=== PATIENT | female | born 1945 ===

== ENCOUNTER 2019-12-25 08:51 | Inpatient (IN) | payer OTHER ==
[~2019-12-25] VITALS: Ht 170.2 cm; Wt 88.5 kg
[~2019-12-25 08:51] MED LIST: AMOX1TAB12 PO; CATAFLAM50 MG PO; JANUMET 50-501 UDTAB PO
--- NOTE | 2019-12-25 09:24 | NUR ---
SE LLAMA PTE. PTE. EN EL FRANCA.
--- NOTE | 2019-12-25 09:36 | NUR ---
SE RECIBE PTE. FEMENINA ALERTA CONCIENTE Y ORIETADA QUE REFIERE SALAS DR. LA ENVIO PARA MESERET YA QUE TIENE KALI CELULITIS EN SENO RT. EL CUAL LE VAN A OPERAR.
--- NOTE | 2019-12-25 10:53 | NUR ---
PACIENTE FEMINA ALERTA Y ORIENTADA EN COMPANIA DE FAMILIAR. SE RE ORIENTA SOBRE EL TRATAMIENTO ORDENADO POR EL MEDICO LA MISMA REFIERE ENTENDER. BAJO MEDIDAS ASEPTICAS SE CANALIZA EN ANTEBRAZO LT CON ANGIO #20 LINDA DE EDEMA Y ERITEMA. SE PENNY MUESTRAS DE LABORATORIO Y SE ADMINISTRAN MEDICAMENTOS. ORDENES TOMADAS Y EJECUTADAS POR RN: ERIC
[2020-01-10] MEDS ORDERED: LEVAQUIN500 MG PO (11:05)
[2020-01-10] MEDS ORDERED: JANUMET 50-5001 EACH PO (14:53)
[2020-01-10] MEDS ORDERED: LIPITOR40 M1 PO (14:53)
[2020-01-10] MEDS ORDERED: CARDURA1 MG PO (14:53)
[2020-01-10] MEDS ORDERED: HYDRALAZINE HCL50 MG PO (14:53)
[2020-01-10] MEDS ORDERED: NORVASC10 MG PO (14:53)
== END 2020-01-10 12:16 | disposition home or self-care (01) | DRG 862 ==
LOC: ER 08:51 → SURH 18:52 → MEDI 18:52 → SEC-K 18:52 → MEDI 12-26 01:13 → SURH 12-31 13:14
PROVIDERS: Radiology Vascular & Interventional Radiology; ADMIT Internal Medicine; ATTEND Internal Medicine
PROC: 02H633Z Insertion of Infusion Device into Right Atrium, Percutaneous Approach (ICD-10-PCS; 2020-01-02)
PROC: B518ZZA Fluoroscopy of Superior Vena Cava, Guidance (ICD-10-PCS; 2020-01-02)
PROC: 0JH63XZ Insertion of Tunneled Vascular Access Device into Chest Subcutaneous Tissue and Fascia, Percutaneous Approach (ICD-10-PCS; principal; 2020-01-02 17:00)
PROC: 5A1D70Z Performance of Urinary Filtration, Intermittent, Less than 6 Hours Per Day (ICD-10-PCS; 2020-01-03)
PROC: 0JPTXXZ Removal of Tunneled Vascular Access Device from Trunk Subcutaneous Tissue and Fascia, External Approach (ICD-10-PCS; 2020-01-06)
PROC: 05PYX3Z Removal of Infusion Device from Upper Vein, External Approach (ICD-10-PCS; 2020-01-06)
PROC: 0JH63XZ Insertion of Tunneled Vascular Access Device into Chest Subcutaneous Tissue and Fascia, Percutaneous Approach (ICD-10-PCS; 2020-01-06)
PROC: 02H633Z Insertion of Infusion Device into Right Atrium, Percutaneous Approach (ICD-10-PCS; 2020-01-06)
PROC: 3E0F7GC Introduction of Other Therapeutic Substance into Respiratory Tract, Via Natural or Artificial Opening (ICD-10-PCS; 2020-01-06)
DX: T81.49XA Infection following a procedure, other surgical site, initial encounter (principal); N18.6 End stage renal disease; N17.9 Acute kidney failure, unspecified; N61.0 Mastitis without abscess; I10 Essential (primary) hypertension; C50.911 Malignant neoplasm of unspecified site of right female breast; E11.65 Type 2 diabetes mellitus with hyperglycemia; E11.21 Type 2 diabetes mellitus with diabetic nephropathy; Z79.4 Long term (current) use of insulin; D63.0 Anemia in neoplastic disease; Z99.2 Dependence on renal dialysis; Z20.828 Contact with and (suspected) exposure to other viral communicable diseases

== ENCOUNTER 2021-01-10 19:50 | Emergency (ER) | payer OTHER ==
[~2021-01-10] VITALS: Ht 170.2 cm; Wt 65.8 kg
[~2021-01-10 19:50] MED LIST changes: +CARDURA1 MG PO; +HYDRALAZINE HCL50 MG PO; +JANUMET 50-5001 EACH PO; +LEVAQUIN500 MG PO; +LIPITOR40 M1 PO; +NORVASC10 MG PO
[2021-01-10] MEDS ORDERED: ANASTROZOLE1 MG PO (20:26)
[2021-01-10] MEDS ORDERED: IBRANCE75 MG PO (20:31)
[2021-01-10] MEDS ORDERED: GLIPIZIDE XL5 MG PO (20:31)
[2021-01-10] MEDS ORDERED: GRALISE600 MG PO (20:31)
== END 2021-01-11 01:23 | disposition home or self-care (01) ==
LOC: ER 19:50
DX: I95.89 Other hypotension (principal); R42 Dizziness and giddiness; C50.911 Malignant neoplasm of unspecified site of right female breast; E11.22 Type 2 diabetes mellitus with diabetic chronic kidney disease; I12.0 Hypertensive chronic kidney disease with stage 5 chronic kidney disease or end stage renal disease; N18.6 End stage renal disease; Z99.2 Dependence on renal dialysis; Z79.84 Long term (current) use of oral hypoglycemic drugs; Z92.21 Personal history of antineoplastic chemotherapy